=== PATIENT | male | born 1980 | race Caucasian/White ===

== ENCOUNTER 2017-03-11 13:09 | Emergency (ER) | payer MEDICAID ==
[~2017-03-11] VITALS: Ht 193 cm; Wt 82.1 kg
[2017-03-11 13:49] LABS: Basophils # (auto) 0.1 uL; Basophils % (auto) 0.9 % (0.0-2.0); Eosinophils # (auto) 0.1 uL; Hematocrit 44.3 % (41.0-53.0); Lymphocytes # (auto) 1.8 uL; Lymphocytes % (auto) 30.6 % (10.0-50.0); Mean Corpuscular Hemoglobin 29.9 pg (28.0-32.0); Mean Corpuscular Hgb Conc. 33.9 g/dL (32.0-36.0); Mean Corpuscular Volume 88.1 fL (80.0-100.0); Mean Platelet Volume 10.1 fL (7.4-10.4); Monocytes # (auto) 0.3 uL; Monocytes % (auto) 5.9 % (0.0-12.0); Neutrophils # (auto) 3.6 uL; Neutrophils % (auto) 60.6 % (37.0-80.0); Platelet Count (auto) 282 10^3/uL (140-450); Red Cell Distribution Width 12.8 % (11.6-16.0); White Blood Cell 5.9 10^3/uL (4.4-10.8)
[2017-03-11 14:16] LABS: Albumin 3.7 g/dL (3.4-5.0); BUN/Creatinine Ratio 8.2; Bilirubin, Total 0.3 mg/dL (0.2-1.0); Calcium 8.8 mg/dL (8.5-10.1)
[2017-03-11] MEDS ORDERED: SODIUM CHLORIDE 0.9% 1,000 ML IV ONE ×2 (15:08)
[2017-03-11] MEDS ORDERED: IOHEXOL 300 MG/ML 100ML BOTTLE IJ ONE (15:13)
[2017-03-11] MEDS ORDERED: InsuLIN REG 1unit/0.01ml Soln (100units/ml) IV ONE (15:15)
[2017-03-11] MEDS ORDERED: ONDANSETRON HCL 4 MG/2 ML VIAL IV ONE (15:15)
[2017-03-11] MEDS ORDERED: MORPHINE SULFATE 4 MG/ML SYRG IV ONE (15:15)
[2017-03-11 16:18] LABS: Amylase 32 U/L (25-115)
[2017-03-11 17:40] VITALS: BP 133/66
== END 2017-03-11 18:16 | disposition home or self-care (01) ==
LOC: ER 13:15
DX: E11.65 Type 2 diabetes mellitus with hyperglycemia (principal); R10.13 Epigastric pain; F17.210 Nicotine dependence, cigarettes, uncomplicated; Z87.19 Personal history of other diseases of the digestive system; Z79.4 Long term (current) use of insulin
CPT/HCPCS: 36415; 71010; 74177; 80053; 82150; 82962; 83690; 85025; 96361; 96374; 96375; 99285; J1815; J2270; J2405; J7030; Q9967